=== PATIENT | female | born 2005 | race Two or more races ===

== ENCOUNTER 2025-10-11 07:48 | Outpatient (AMB) | payer OTHER, SELFPAY ==
[2025-10-11 08:11] VITALS: BMI 26.4
--- NOTE | 2025-10-11 08:11 | A.OFFVIS_ITS ---
Vital Signs 10/11/25 08:11 Height 5 ft 1 in Weight 140 lb BMI 26.4 Intake Visit Reasons: Pes planus of both feet Intake Note: Qiana is a 20 year old female who presents today as a new patient for an evaluation of her pes planus. Patient reports she experiences pain from her heel to the arch of her foot and has worsened within the last year. She states she has tried a variety of insoles but has found no type of relief. Allergies cat dander Allergy (Verified 10/11/25 08:14) Hives dog dander (dogs) Allergy (Verified 10/11/25 08:14) Hives Seasonal Allergies Allergy (Verified 10/11/25 08:13) Sneezing HPI HPI Pes planus of both feet: Details: 20-year-old female with complaints of bilateral heel and arch pain. Pain is described as a soreness that is sometimes present 1st thing in the morning. 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 She notes a history of flat feet, denies treatment in the past. She has tried multiple [id number]-lbf-fqadynk orthotics however she would not found relief from them. Review of Systems Const All systems reviewed & are unremarkable except as noted in HPI and below Physical Exam Vital Signs: BMI result Body Mass Index 26.4 Extrem Other: *Bilateral Lower Extremity Focused Exam Vascular: DP/PT 2/4, CFT<3s to all digits, TG warm to cool, no pedal edema Derm: No open wounds or signs of infection Neuro: Protective sensation intact to bilateral lower extremities MSK: Mild tenderness on palpation of the plantar medial calcaneal tubercle bilateral feet progressive to the central medial plantar fascial bands. Moderate arch collapse on weight-bearing. Resting calcaneal valgus bilaterally, heels invert on double heel rise. No too many toe sign. Assessment & Plan Assessment & Plan (1) Plantar fasciitis, bilateral: Code(s): M72.2 - Plantar fascial fibromatosis Category: Medical Plan: * Discussed etiology of the patient's foot pain. Differential diagnosis includes plantar fasciitis, neuritis, tendinitis. * Patient educated on the nature and etiology of plantar fasciitis, which involves inflammation and microtearing of the plantar fascia due to repetitive stress and overuse. * The patient was counseled on conservative management of plantar fasciitis, including daily stretching exercises targeting the plantar fascia and Achilles tendon, use of supportive and properly fitting footwear, and consideration of custom or prefabricated orthotics to improve foot biomechanics. * Discussed that if symptoms persist despite these measures, further interventions such as corticosteroid injections may be considered. * Instructed the patient on home stretching and range of motion exercises including calf-stretches, frozen water bottle therapy, band-therapy. * Discussed supportive shoe wear options. * Follow up in 1 month. May refer for x-rays. (2) Pes planus of both feet: Code(s): M21.41 - Flat foot [pes planus] (acquired), right foot; M21.42 - Flat foot [pes planus] (acquired), left foot Category: Medical Plan: * Recommended [id number] power step orthotics. Patient may require custom foot orthoses if her symptoms do not improve and the [id number] orthotics do not correct her heel valgus. Coding Level of Care Code New Pt Level 4 (84207) Diagnoses Plantar fasciitis, bilateral M72.2 Pes planus of both feet M21.41; M21.42 Time Spent (min) 30
== END 2025-10-11 08:33 | disposition home or self-care (01) ==
LOC: HO.HPODS 07:48
PROVIDERS: PCP Internal Medicine; Visit Provider Student in an Organized Health Care Education/Training Program
DX: M72.2 Plantar fascial fibromatosis (principal); M21.41 Flat foot [pes planus] (acquired), right foot; M21.42 Flat foot [pes planus] (acquired), left foot
CPT/HCPCS: 99204

== ENCOUNTER → 2025-10-11 07:48 | Outpatient (BNVA) | payer OTHER, SELFPAY | PROVIDERS: PCP Internal Medicine; Visit Provider Student in an Organized Health Care Education/Training Program | DX: M72.2 Plantar fascial fibromatosis (principal); M21.41 Flat foot [pes planus] (acquired), right foot; M21.42 Flat foot [pes planus] (acquired), left foot | CPT/HCPCS: 99202 ==